=== PATIENT | female | born 1975 | race Caucasian/White ===

== ENCOUNTER 2018-06-27 22:59 | Emergency (ER) | payer BC ==
--- NOTE | 2018-06-28 | EDPHY ---
H & P Time Seen by Provider: 06/27/18 23:04 HPI/ROS: 43 yo F was cleaning her fish tank prior to feeding Nibbles her pet aneudy, he bit her finger. Review of systems As per HPI General no fever no chills no weakness HEENT no eye pain no eye discharge. No eye redness, no sore throat Respiratory no cough, no shortness of breath Cardiac no chest pain, no peripheral edema GI no abdominal pain, no diarrhea, no constipation, no nausea, no vomiting no flank pain, no hematuria, no dysuria Musculoskeletal no myalgias, no joint pain Heme no easy bruising, no easy bleeding Endo no polyuria, no polydipsia Skin no rashes, no pruritus Neuro no syncope, no dizziness, no headaches Past Medical/Surgical History: seasonal allergies depression Social History: no alcohol or drug use Smoking Status: Former smoker Physical Exam: 43 yo F alert and oriented in nad non toxic appearance at,nc no resp distress vss right hand - from at wrist, digits, good cap refill distal pointer finger overlying pad 1.75 cm laceration gaping Constitutional: Initial Vital Signs Temperature (C) 37.2 C 06/27/18 23:05 Heart Rate 82 06/27/18 23:05 Respiratory Rate 16 06/27/18 23:05 Blood Pressure 136/72 H 06/27/18 23:05 O2 Sat (%) 97 06/27/18 23:05 O2 Delivery Mode Room Air Allergies/Adverse Reactions: No Known Allergies Allergy (Unverified 06/27/18 23:01) Home Medications: Medication Instructions Recorded Singulair 06/27/18 Wellbutrin Sr 06/27/18 Amoxicillin/Clavulanate Pot 875 mg PO BID #10 tab 06/28/18 [Augmentin 875 MG TAB (*)] Medical Decision Making Procedures: Procedure note-laceration The wound was irrigated with copious amounts of saline. Bupivacaine 0.5% without epinephrine combined with xylocaine 2% without epinephrine used to perform a digital block. 9 simple interrupted sutures were placed. 5-0 Ethilon was used. Patient tolerated procedure well. ED Course/Re-evaluation: Patient seen and evaluated for finger laceration Impression Finger laceration distal pad right 2nd finger Plan Suture Return in 10 days for suture removal Differential Diagnosis: Differential diagnosis considered but not limited to Laceration, abrasion, puncture wound Departure - Departure Disposition: Home, Routine, Self-Care Clinical Impression: Laceration of right index finger, Fish bite wound Condition: Good Instructions: Finger Laceration (ED) Additional Instructions: Keep wound clean and dry. Return in 10 days for suture removal. Referrals: NONE *PRIMARY CARE P,. [Primary Care Provider] - As per Instructions [facility] [Provider Group] - As per Instructions Prescriptions: Amoxicillin/Clavulanate Pot [Augmentin 875 MG TAB (*)] 875 mg PO BID #10 tab
[2018-06-28] MEDS ORDERED: AMOXICILLIN/CLAVULANATE POT 875/125 MG TAB PO ONE (00:45)
[2018-06-28 04:38] VITALS: BP 136/93
== END 2018-06-28 01:00 | disposition home or self-care (01) ==
LOC: CED 22:59
PROC: 0HQFXZZ Repair Right Hand Skin, External Approach (ICD-10-PCS; principal; 2018-06-27)
DX: S61.218A Laceration without foreign body of other finger without damage to nail, initial encounter (principal); W56.51XA Bitten by other fish, initial encounter
CPT/HCPCS: 99283-ER